=== PATIENT | male | born 1965 | race Caucasian/White ===

== ENCOUNTER 2021-03-11 19:37 | Emergency (ER) | payer OTHER, SELFPAY ==
[2021-03-11 20:19] VITALS: BP 165/82; PULSE 79; RESP 16; TEMP 36.7; O2SAT 94; BMI 59.3
--- NOTE | 2021-03-11 20:29 | ED_ITS ---
HPI - Wound/Laceration General: Chief Complaint: Wound/Laceration Stated Complaint: Middle Finger Left Hand needs Stiches Time Seen by Provider: 03/11/21 19:59 Course Vital Signs: Vital signs: Vital Signs Temperature 98.1 F 03/11/21 20:19 Pulse Rate 79 03/11/21 20:19 Respiratory Rate 16 03/11/21 20:19 Blood Pressure 165/82 03/11/21 20:19 Pulse Oximetry 94 03/11/21 20:19 Coding Level of Care Code ED Tax Map Technician for Temi Hunter
--- NOTE | 2021-03-11 20:31 | W.ED.WOUNDLC ---
HPI - Wound/Laceration General: Chief Complaint: Wound/Laceration Stated Complaint: Middle Finger Left Hand needs Stiches Time Seen by Provider: 03/11/21 19:59 Source: patient Mode of arrival: ambulatory Limitations: no limitations History of Present Illness: HPI narrative: 56-year-old male states the laceration to the tip of his middle finger on the left hand. He does have a laceration to the very distal portion of his finger does not involve the DIP joint superficial nature. He rates his pain a 4-10 is no decrease in movement. Up-to-date on tetanus Associated symptoms: Denies chills, fever(s), nausea or vomiting Review of Systems Const: Denies: fever(s), chills, body aches or change in appetite Eyes: Denies: blurry vision or eye discomfort ENMT: Denies: throat pain or dental pain Card: Denies: chest pain Resp: Denies: dyspnea GI: Denies: abdominal pain, nausea, vomiting or diarrhea : Denies: dysuria Musc: Denies: neck pain or back pain Skin/Breast: Denies: rash Neuro: Denies: headache(s) Psych: Denies: depression Giuseppe/Lymph: Denies: easy bruising All/Imm: Denies: urticaria Physical Exam Const: COMMON NORMALS: no acute distress, patient oriented x3 and healthy appearing HENMT: COMMON NORMALS: normocephalic and atraumatic HEAD & SCALP: normocephalic and atraumatic Eye: COMMON NORMALS: Equal, round and reactive pupils present and EOMs intact bilaterally PUPIL: Yes Equal, round and reactive pupils present Neck/C-Spine: COMMON NORMALS: full ROM and supple Chest: COMMONS NORMALS: normal inspection of the chest and normal palpation of entire chest wall Resp: COMMON NORMALS: normal respiratory effort, No retractions, No use of accessory muscles and clear to auscultation bilaterally AUSCULTATION: clear to auscultation bilaterally Cardio: COMMON NORMALS: regular rate, regular rhythm and No murmurs present (Cardio) RATE: regular rate RHYTHM: regular rhythm GI: COMMON NORMALS: Normal to inspection, nondistended, normoactive bowel sounds present, Soft to palpation, non-tender and no masses PALPATION: Yes Soft to palpation Extremity: COMMON NORMALS: normal to inspection and full ROM Neuro: COMMON NORMALS: patient oriented x3, moves all extremities and no focal motor deficits Psych: COMMON NORMALS: mental status grossly normal, Normal thought process present and cooperative THOUGHT PROCESS: Normal thought process present Skin: COMMON NORMALS: no rashes or lesions noted NARRATIVE SKIN EXAM: Superficial facial laceration to the tip of the left middle finger 1 cm GENERAL SKIN EXAM: no rashes or lesions noted Procedures Laceration Laceration 1: Site: hand Side (If applicable): left Size (cm): 1 Description: linear Depth: simple, single layer Pre-repair: wound explored and irrigated extensively Skin layer closed with: other (dermabond) Course Vital Signs: Vital signs: Vital Signs Temperature 98.1 F 03/11/21 20:36 Pulse Rate 79 03/11/21 20:36 Respiratory Rate 16 03/11/21 20:36 Blood Pressure 165/82 03/11/21 20:36 Pulse Oximetry 94 03/11/21 20:36 MDM - Wound/Laceration MDM Narrative: Medical decision making narrative: Patient presents with a laceration to his tip of his middle finger laceration was repaired with tissue adhesive he is stable for discharge. Discharge Plan Discharge Patient Disposition: Home Clinical Impression: Laceration Condition: Stable Discharge Orders: Discharge ED (Routine); Ordered 03/11/21 Ordered By: Joy Ayers Discharge Diet: Advance as tolerated Discharge Activity: Resume usual activity Patient Instructions: Skin Adhesive Care (ED) Coding Level of Care Code ED Back Strip Machine Operator for Temi Hunter
[2021-03-11 20:36] VITALS: BP 165/82; PULSE 79; RESP 16; TEMP 36.7; O2SAT 94
== END 2021-03-11 20:53 | disposition home or self-care (01) ==
PROVIDERS: Emergency Provider Emergency Medicine
DX: S61.213A Laceration without foreign body of left middle finger without damage to nail, initial encounter (principal); X58.XXXA Exposure to other specified factors, initial encounter
CPT/HCPCS: 12001; 99282

== ENCOUNTER → 2021-11-28 14:12 | Outpatient (BNVA) | payer OTHER, SELFPAY | PROVIDERS: PCP Family Medicine; Referring Provider Family Medicine; Visit Provider Specialist | DX: M19.012 Primary osteoarthritis, left shoulder (principal); M25.512 Pain in left shoulder | CPT/HCPCS: 73030 ==

== ENCOUNTER 2021-12-28 12:03 | Outpatient (CLI) | payer OTHER, SELFPAY ==
--- NOTE | 2021-12-28 12:30 | MR_ITS ---
WS: [id number] MRI LEFT SHOULDER HISTORY: shoulder injury/pain COMPARISON: Radiograph 11/28/2021 TECHNIQUE: Multiplanar sequences of the shoulder joint are submitted. Moderate AC joint hypertrophy. Osteophytic ridging and soft tissue hypertrophy surrounding the AC juanita nt with mild encroachment upon the supraspinatus. Small amount of marrow edema in the acromion with n arrowing of the AC joint. No significant bursal distention. No os acromion. Biceps tendon is in roque l position with increase fluid in the tendon sheath. Moderate narrowing of the glenohumeral joint with osteophytic ridging around the humeral head. No mus kemar atrophy. No edema. Quality of this examination is suboptimal by body habitus. There is fluid makenzie g the subscapularis tendon but no tear identified. Blunting and abnormal signal involving the labrum and the glenoid. There is soft tissue thickening involving the labrum. Avulsion and tear through the anterior labrum. Additional tear suspected involving the posterior labrum. Abnormal signal through th e superior labrum. No fractures are identified. MR/MR shoulder LT wo con* [id number] IMPRESSION: 1. Quality of this examination is limited by body habitus. 2. 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 3. No rotator cuff tear is identified. 4. Diffuse abnormal labrum. Abnormal signal with tears involving the superior, anterior and posterior labrum. 5. Biceps tenosynovitis.
== END 2021-12-28 12:04 | disposition home or self-care (01) ==
PROVIDERS: PCP Family Medicine; Visit Provider Specialist
DX: M25.512 Pain in left shoulder (principal); M75.22 Bicipital tendinitis, left shoulder; S43.432A Superior glenoid labrum lesion of left shoulder, initial encounter
CPT/HCPCS: 73221

== ENCOUNTER 2024-01-17 21:22 | Observation (INO) | payer OTHER, SELFPAY ==
[2024-01-17 21:29] VITALS: BP 151/80; PULSE 96; RESP 24; TEMP 37.1; O2SAT 92; BMI 61.6
--- NOTE | 2024-01-17 21:41 | ED_ITS ---
Documented by User: EDILMA Vargas 01/17/24 23:40 HPI - Skin/Abscess/Foreign Bdy 2 General: Chief complaint: Skin/Abscess/Foreign Body Stated complaint: Boil on Side Time Seen by Provider: 01/17/24 21:37 History of Present Illness: 59-year-old male patient comes in today for a draining wound to the right upper abdominal wall. Patient was seen at urgent care clinic and had an incision and drainage done on Thursday to a inclusion of cyst to the right upper abdominal wall. Patient states he was able to get some whitish discharge from the wound on Thursday when he noticed that it was slightly red. Today his caregiver removed the packing from the wound and they had a large amount of drainage from it. Patient and caregiver were concerned and then came to the ER. Patient has some significant redness to the surrounding tissue but reports that it has improved. Patient appears nontoxic. Review of Systems 2 General: Reports: 10 or more systems reviewed and unremarkable except in HPI and below Skin/Breast: Reports: changing lesions PFSH ED 2 PFSH: Social History Smoking and tobacco/nicotine status: never used tobacco/nicotine Physical Exam 2 Const: COMMON NORMALS: alert HENMT: COMMON NORMALS: normocephalic HEAD & SCALP: normocephalic Neck/C-Spine: COMMON NORMALS: full ROM Chest: COMMONS NORMALS: normal inspection of the chest Resp: COMMON NORMALS: normal respiratory effort Cardio: COMMON NORMALS: regular rate RATE: regular rate GI: COMMON NORMALS: Soft to palpation PALPATION: Yes Soft to palpation Back/Pelvis: COMMON NORMALS: thoracic and lumbar spine normal to inspection Extremity: COMMON NORMALS: normal to inspection Neuro: SENSORIUM/ORIENTATION: Yes alert Skin: NARRATIVE SKIN EXAM: 12 cm area of redness across the abdomen with a incision that is approximately 1-1/2 cm with draining purulent fluid. Course 2 Vital Signs: Vital signs: Vital Signs Temperature 97.7 F 01/18/24 20:00 Pulse Rate 79 01/18/24 20:00 Respiratory Rate 19 H 01/18/24 20:00 Blood Pressure 135/90 01/18/24 20:00 Pulse Oximetry 91 01/18/24 20:00 Oxygen Delivery Me thod Room Air 01/18/24 20:00 Oxygen Flow Rate 2 01/18/24 11:05 MDM - Skin/Abscess/Foreign Bdy Medicial Decision Making 59-year-old male patient comes in today for complaints of draining wound to the right upper abdominal wall. Patient reported that incision and drainage done on Thursday. Today patient was concerned due to increased amount of drainage. Patient appears nontoxic. Patient reports some increased pain and discomfort. Differential diagnosis includes but not limited to cellulitis and abscess, fistula, bacteremia, sepsis, malingering. CBC noted a white count of 13,000, CMP was unremarkable. CT of the abdomen and pelvis noted significant inflammation of subcutaneous fat left upper quadrant with thickening of epidermis suggestive of cellulitis. Patient also had scattered soft tissue emphysema that could suggest abscess versus fistula or developing necrotizing fasciitis. Patient will be started on vancomycin and Zosyn. I reviewed this with Dr. Arceo, on-call surgeon, who agreed to admit patient for further management and surgical cleanout of the wound. Patient is nontoxic in appearance and wound is draining purulent fluid. Patient will be admitted for surgical management and IV fluids. Reviewed this with patient and was agreed to plan. Discussed with Dr. Gordillo who will write admitting orders. Lab Data 01/17/24 22:58 01/17/24 22:58 Radiology Impressions Abdomen/Pelvis CT 01/17/24 21:47 IMPRESSION: 1. Inflammation in the subcutaneous fat over the left upper quadrant with thickening of the epidermis consistent with cellulitis. 2. Scattered soft tissue emphysema which could represent sequela from abscess drainage/fistula versus developing necrotizing fasciitis. Axial series 8, images 16-23. 3. No obvious abscess at this time. ADDENDUM: 01/17/24 [id number] History: Abscess was opened and drain prior to CT scan. THIS REPORT CONTAINS FINDINGS THAT MAY BE CRITICAL TO PATIENT CARE. The findings were verbally communicated via telephone conference with NIYAH CHAU at 11:22 PM MARIA INES on 01/17/2024. The findings were acknowledged and understood. Laboratory Results WBC 13.07 10^3/uL (3.29-11.43) H 01/17/24 22:58 RBC 5.31 10^6/uL (3.85-5.65) 01/17/24 22:58 Hgb 14.30 g/dL (11.27-16.99) 01/17/24 22:58 Hct 46.7 % (37-53) 01/17/24 22:58 MCV 87.9 fl (82-101) 01/17/24 22:58 MCH 26.9 pg (27-33) L 01/17/24 22:58 MCHC 30.6 g/dL (30-55) 01/17/24 22:58 RDW 16.5 % (12.1-15.1) H 01/17/24 22:58 Plt Count 238 10^3/cmm (157-399) 01/17/24 22:58 MPV 10.0 fL (7.4-10.4) 01/17/24 22:58 Neut % (Auto) 74.7 % 01/17/24 22:58 Lymph % (Auto) 12.2 % 01/17/24 22:58 Ulster % (Auto) 9.3 % 01/17/24 22:58 Eos % (Auto) 2.6 % 01/17/24 22:58 Baso % (Auto) 0.4 % 01/17/24 22:58 Neut # (Auto) 9.76 10^3/uL (1.8-7.7) H 01/17/24 22:58 Lymph # (Auto) 1.6 10^3/uL (0.8-4.8) 01/17/24 22:58 [place]ster # (Auto) 1.2 10^3/uL (0.2-0.9) H 01/17/24 22:58 Eos # (Auto) 0.3 10^3/uL (0.0-0.8) 01/17/24 22:58 Baso # (Auto) 0.1 10^3/uL (0.0-0.1) 01/17/24 22:58 Nucleated RBC % (auto) 0 % 01/17/24 22:58 Nucleated RBCs # 0.0 /100WBC 01/17/24 22:58 Sodium 134 mmol/L (136-145) L 01/17/24 22:58 Potassium 4.1 mmol/L (3.5-5.1) 01/17/24 22:58 Chloride 97 mmol/L (98-107) L 01/17/24 22:58 Carbon Dioxide 29 mmol/L (22-29) 01/17/24 22:58 Anion Gap 12.1 (5-19) 01/17/24 22:58 BUN 12 mg/dL (6-20) 01/17/24 22:58 Creatinine 0.6 mg/dL (0.7-1.2) L 01/17/24 22:58 GFR Calculation 137.9 mL/min (90-130) H 01/17/24 22:58 Glucose 132 mg/dL (65-115) H 01/17/24 22:58 Calculated Osmolality 280 mOsm/kg (285-295) L 01/17/24 22:58 Lactic Acid 1.6 mmol/L (0.5-2.2) 01/17/24 22:58 Calcium 8.8 mg/dL (8.5-10.5) 01/17/24 22:58 Total Bilirubin 0.6 mg/dL (0.15-1.2) 01/17/24 22:58 AST 21 U/L (0-40) 01/17/24 22:58 ALT 34 U/L (0-41) 01/17/24 22:58 Alkaline Phosphatase 117 U/L (40-130) 01/17/24 22:58 C-Reactive Protein 150.2 mg/L (0.0-4.9) H 01/17/24 22:58 Total Protein 6.8 g/dL (6.6-8.7) 01/17/24 22:58 Albumin 2.7 g/dL (3.5-5.2) L 01/17/24 22:58 Globulin 4.1 g/dL (1.3-4.6) 01/17/24 22:58 All radiology interpretation(s) finalized by discharge Discharge Plan Discharge Patient Disposition: Admitted As Inpatient Admit Provider: El Arceo Clinical Impression: Abdominal wall abscess Condition: Stable Coding Level of Care Code ED Skein Drier for Chg Fwd Documented by User: Ubaldo Gordillo DO 01/18/24 23:55 HPI - Skin/Abscess/Foreign Bdy 2 General: Chief complaint: Skin/Abscess/Foreign Body Stated complaint: Boil on Side Time Seen by Provider: 01/17/24 21:37 [facility]: Social History Smoking and tobacco/nicotine status: never used tobacco/nicotine Course 2 Vital Signs: Vital signs: Vital Signs Temperature 97.7 F 01/18/24 20:00 Pulse Rate 79 01/18/24 20:00 Respiratory Rate 19 H 01/18/24 20:00 Blood Pressure 135/90 01/18/24 20:00 Pulse Oximetry 91 01/18/24 20:00 Oxygen Delivery Me thod Room Air 01/18/24 20:00 Oxygen Flow Rate 2 01/18/24 11:05 MDM - Skin/Abscess/Foreign Bdy Medicial Decision Making 59-year-old male patient comes in today for complaints of draining wound to the right upper abdominal wall. Patient reported that incision and drainage done on Thursday. Today patient was concerned due to increased amount of drainage. Patient appears nontoxic. Patient reports some increased pain and discomfort. Differential diagnosis includes but not limited to cellulitis and abscess, fistula, bacteremia, sepsis, malingering. CBC noted a white count of 13,000, CMP was unremarkable. CT of the abdomen and pelvis noted significant inflammation of subcutaneous fat left upper quadrant with thickening of epidermis suggestive of cellulitis. Patient also had scattered soft tissue emphysema that could suggest abscess versus fistula or developing necrotizing fasciitis. Patient will be started on vancomycin and Zosyn. I reviewed this with Dr. Arceo, on-call surgeon, who agreed to admit patient for further management and surgical cleanout of the wound. Patient is nontoxic in appearance and wound is draining purulent fluid. Patient will be admitted for surgical management and IV fluids. Reviewed this with patient and was agreed to plan. Discussed with Dr. Gordillo who will write admitting orders. This patient was initially treated by EDILMA Loera. I agree with this history, evaluation, diagnosis and treatment. Lab Data 01/17/24 22:58 01/17/24 22:58 Radiology Impressions Abdomen/Pelvis CT 01/17/24 21:47 IMPRESSION: 1. Inflammation in the subcutaneous fat over the left upper quadrant with thickening of the epidermis consistent with cellulitis. 2. Scattered soft tissue emphysema which could represent sequela from abscess drainage/fistula versus developing necrotizing fasciitis. Axial series 8, images 16-23. 3. No obvious abscess at this time. ADDENDUM: 01/17/24 [id number] History: Abscess was opened and drain prior to CT scan. THIS REPORT CONTAINS FINDINGS THAT MAY BE CRITICAL TO PATIENT CARE. The findings were verbally communicated via telephone conference with NIYAH CHAU at 11:22 PM CDT on 01/17/2024. The findings were acknowledged and understood. Laboratory Results WBC 13.07 10^3/uL (3.29-11.43) H 01/17/24 22:58 RBC 5.31 10^6/uL (3.85-5.65) 01/17/24 22:58 Hgb 14.30 g/dL (11.27-16.99) 01/17/24 22:58 Hct 46.7 % (37-53) 01/17/24 22:58 MCV 87.9 fl (82-101) 01/17/24 22:58 MCH 26.9 pg (27-33) L 01/17/24 22:58 MCHC 30.6 g/dL (30-55) 01/17/24 22:58 RDW 16.5 % (12.1-15.1) H 01/17/24 22:58 Plt Count 238 10^3/cmm (157-399) 01/17/24 22:58 MPV 10.0 fL (7.4-10.4) 01/17/24 22:58 Neut % (Auto) 74.7 % 01/17/24 22:58 Lymph % (Auto) 12.2 % 01/17/24 22:58 Ulster % (Auto) 9.3 % 01/17/24 22:58 Eos % (Auto) 2.6 % 01/17/24 22:58 Baso % (Auto) 0.4 % 01/17/24 22:58 Neut # (Auto) 9.76 10^3/uL (1.8-7.7) H 01/17/24 22:58 Lymph # (Auto) 1.6 10^3/uL (0.8-4.8) 01/17/24 22:58 Ulster # (Auto) 1.2 10^3/uL (0.2-0.9) H 01/17/24 22:58 Eos # (Auto) 0.3 10^3/uL (0.0-0.8) 01/17/24 22:58 Baso # (Auto) 0.1 10^3/uL (0.0-0.1) 01/17/24 22:58 Nucleated RBC % (auto) 0 % 01/17/24 22:58 Nucleated RBCs # 0.0 /100WBC 01/17/24 22:58 Sodium 134 mmol/L (136-145) L 01/17/24 22:58 Potassium 4.1 mmol/L (3.5-5.1) 01/17/24 22:58 Chloride 97 mmol/L (98-107) L 01/17/24 22:58 Carbon Dioxide 29 mmol/L (22-29) 01/17/24 22:58 Anion Gap 12.1 (5-19) 01/17/24 22:58 BUN 12 mg/dL (6-20) 01/17/24 22:58 Creatinine 0.6 mg/dL (0.7-1.2) L 01/17/24 22:58 GFR Calculation 137.9 mL/min (90-130) H 01/17/24 22:58 Glucose 132 mg/dL (65-115) H 01/17/24 22:58 Calculated Osmolality 280 mOsm/kg (285-295) L 01/17/24 22:58 Lactic Acid 1.6 mmol/L (0.5-2.2) 01/17/24 22:58 Calcium 8.8 mg/dL (8.5-10.5) 01/17/24 22:58 Total Bilirubin 0.6 mg/dL (0.15-1.2) 01/17/24 22:58 AST 21 U/L (0-40) 01/17/24 22:58 ALT 34 U/L (0-41) 01/17/24 22:58 Alkaline Phosphatase 117 U/L (40-130) 01/17/24 22:58 C-Reactive Protein 150.2 mg/L (0.0-4.9) H 01/17/24 22:58 Total Protein 6.8 g/dL (6.6-8.7) 01/17/24 22:58 Albumin 2.7 g/dL (3.5-5.2) L 01/17/24 22:58 Globulin 4.1 g/dL (1.3-4.6) 01/17/24 22:58 Discharge Plan Discharge Patient Disposition: Admitted As Inpatient Admit Provider: El Arceo Clinical Impression: Abdominal wall abscess Condition: Stable Coding Level of Care Code ED Skein Drier for Temi Hunter
--- NOTE | 2024-01-17 21:47 | CTR_ITS ---
PROCEDURE INFORMATION: Exam: CT Abdomen And Pelvis With Contrast Exam date and time: 01/17/2024 10:32 PM Age: 59 years old Clinical indication: Other: Skin abscess; Patient HX: Patient has anterior abd wall abscess with drainage to ruq. ; Additional info: Abd skin abscess TECHNIQUE: Imaging protocol: Computed tomography of the abdomen and pelvis with contrast. Radiation optimization: All CT scans at this facility use at least one of these dose optimization techniques: automated exposure control; mA and/or kV adjustment per patient size (includes targeted exams where dose is matched to clinical indication); or iterative reconstruction. Contrast material: OMNI 350; Contrast volume: 125 ml; Contrast route: INTRAVENOUS (IV); COMPARISON: CR XR chest 1V [id number] 02/27/2018 5:08 PM RADIATION DOSE METRICS: Total DLP (mGy-cm): 1523.68 FINDINGS: Liver: Normal. No mass. Gallbladder and biliary ducts: Normal. No calcified stones. No ductal dilation. Pancreas: Normal. No ductal dilation. Spleen: Normal. No splenomegaly. Adrenal glands: Normal. No mass. Kidneys and ureters: Normal. No hydronephrosis. Stomach and bowel: Unremarkable. No obstruction. No mucosal thickening. Appendix: No evidence of appendicitis. Intraperitoneal space: Unremarkable. No free air. No significant fluid collection. Vasculature: Unremarkable. No abdominal aortic aneurysm. Lymph nodes: Unremarkable. No enlarged lymph nodes. Urinary bladder: Unremarkable as visualized. Reproductive: Unremarkable as visualized. Bones/joints: Unremarkable. No acute fracture. Soft tissues: Inflammation in the subcutaneous fat over the left upper quadrant with thickening of the epidermis consistent with cellulitis. Scattered soft tissue emphysema which could represent sequela from abscess drainage/fistula versus developing necrotizing fasciitis. Axial series 8, images 16-23. Other findings: Examination is limited secondary to body habitus. No obvious abscess at this time. CT/CT abdomen pelvis w con* [id number] IMPRESSION: 1. Inflammation in the subcutaneous fat over the left upper quadrant with thickening of the epidermis consistent with cellulitis. 2. Scattered soft tissue emphysema which could represent sequela from abscess drainage/fistula versus developing necrotizing fasciitis. Axial series 8, images 16-23. 3. No obvious abscess at this time.
[2024-01-17] MEDS: iohexol 350 mg/mL 500 mL Btl (per mL) IV (22:29)
[2024-01-17] MEDS: piperacillin-tazobactam 4.5 GM in sodium chloride 0.9% (plus) 50 ML IV (22:58)
[2024-01-17] MEDS: vancomycin 1,000 MG in sodium chloride 0.9% 250 ML 250 MG IV (23:00)
[2024-01-17 23:12] LABS: Basophils # 0.1 10^3/uL (0.0-0.1); Basophils % 0.4 %; Eosinophils # 0.3 10^3/uL (0.0-0.8); Eosinophils % 2.6 %; Hematocrit 46.7 % (37-53); Lymphocytes # 1.6 10^3/uL (0.8-4.8); Lymphocytes % 12.2 %; Mean Corpuscular HGB Conc 30.6 g/dL (30-55); Mean Corpuscular Hemoglobin 26.9 pg (27-33); Mean Corpuscular Volume 87.9 fl (82-101); Monocytes # 1.2 10^3/uL (0.2-0.9); Monocytes % 9.3 %; Neutrophils # 9.76 10^3/uL (1.8-7.7); Neutrophils % 74.7 %; Nucleated Red Blood Cells % 0 %; Platelet Count 238 10^3/cmm (157-399); Red Blood Count 5.31 10^6/uL (3.85-5.65); Red Cell Distribution Width 16.5 % (12.1-15.1); White Blood Count 13.07 10^3/uL (3.29-11.43)
[2024-01-17 23:13] VITALS: PULSE 102; RESP 22; O2SAT 92
[2024-01-17 23:33] LABS: Alanine Aminotransferase 34 U/L (0-41); Albumin Level 2.7 g/dL (3.5-5.2); Alkaline Phosphatase 117 U/L (40-130); Anion Gap 12.1 (5-19); Aspartate Amino Transferase 21 U/L (0-40); Blood Urea Nitrogen 12 mg/dL (6-20); C Reactive Protein 150.2 mg/L (0.0-4.9); Calcium 8.8 mg/dL (8.5-10.5); Carbon Dioxide 29 mmol/L (22-29); Chloride 97 mmol/L (98-107); Globulin 4.1 g/dL (1.3-4.6); Glomerular Filtration Rate 137.9 mL/min (90-130); Glucose 132 mg/dL (65-115); Lactic Sepsis W/Reflex 1.6 mmol/L (0.5-2.2); Osmolality Calculated 280 mOsm/kg (285-295); Potassium 4.1 mmol/L (3.5-5.1); Sodium 134 mmol/L (136-145); Total Bilirubin 0.6 mg/dL (0.15-1.2); Total Protein 6.8 g/dL (6.6-8.7)
[2024-01-17 23:40] LABS: Creatinine Clr Calc Pharmacy 248.7585
[2024-01-17 23:42] VITALS: RESP 18
[2024-01-17] MEDS: HYDROmorphone 1 mg/mL INJ 1 mL 0.5 MG IVP (23:42)
[2024-01-18] VITALS (20 sets, daily range): BP systolic 108–170; BP diastolic 65–90; PULSE 73–92; RESP 18–20; TEMP 36.2–37.1; O2SAT 9–98; BMI 61.6
[2024-01-18] MEDS: piperacillin-tazobactam 4.5 GM in sodium chloride 0.9% (plus) 50 ML IV ×4 (02:20→20:12)
[2024-01-18] MEDS: sodium chloride 0.9% 1,000 ML 100 ML IV ×2 (02:24→12:19)
[2024-01-18] MEDS: vancomycin 1,750 MG/350 ML PIGGYBACK 233.33 MG IV ×2 (03:07→12:18)
--- NOTE | 2024-01-18 07:06 | P.HP_ITS ---
Providers/Chief Complaint 2 Admitting Physician: El Arceo MD Primary Care Provider: Emmanuel Wills MD Chief Complaint: Boil on Side, Busted Stiches History of Present Illness Herrera Forbes is a 59 year old male Who presents to our hospital complaining of swelling and redness of the anterior abdominal wall. He has noticed a boil about 5 to 7 days ago, it self drained and then he presented to the emergency room for I&D and has been packing it, yesterday while removing the packing the large amount of purulent material came out. He denies any other significant systemic symptoms. Review of Systems 2 General: Reports: 10 or more systems reviewed and unremarkable except in HPI and below Medications/Allergies Home Medications Medication Instructions Recorded Confirmed Last Taken Type cyclobenzaprine 10 mg tablet 10 mg PO PRN 11/28/21 01/18/24 01/12/24 History losartan 50 mg tablet 50 mg PO DAILY 11/28/21 01/18/24 01/17/24 History tramadol 50 mg tablet 50 mg PO TID PRN Pain 11/28/21 01/18/24 01/17/24 History amoxicillin 875 mg-potassium 875 tab PO DIRECTED 01/18/24 01/18/24 01/17/24 History clavulanate 125 mg tablet carvedilol 3.125 mg tablet 3.125 mg PO BID 01/18/24 01/18/24 01/17/24 History furosemide 40 mg tablet 40 mg PO DAILY 01/18/24 01/18/24 01/17/24 History ibuprofen 800 mg tablet 800 mg PO PRN pain 01/18/24 01/18/24 01/17/24 History potassium chloride 20 mEq 20 meq PO DAILY 01/18/24 01/18/24 01/17/24 History tablet,extended release semaglutide 1 mg/dose (4 mg/3 mL) 1 mg SUBCUT DIRECTED 01/18/24 01/18/24 01/17/24 History subcutaneous pen injector (Ozempic) testosterone cypionate 200 mg/mL 0.5 mg IM DIRECTED 01/18/24 01/18/24 01/17/24 History intramuscular oil Allergies Allergy/AdvReac Type Severity Reaction Status Date / Time No Known Allergies Allergy Verified 01/17/24 21:35 PFSH Acute 2 PFSH: Social History Smoking and tobacco/nicotine status: never used tobacco/nicotine Vitals/I&O/Wt Last Vital Signs Temp 97.6 F 01/18/24 04:00 Pulse 83 01/18/24 04:00 Resp 18 01/18/24 04:00 BP 131/80 01/18/24 04:00 Pulse Ox 94 01/18/24 04:00 O2 Del Method Room Air 01/18/24 04:00 01/17/24 01/18/24 01/18/24 22:59 06:59 14:59 Intake Total 700 / 700 Balance 700 / 700 Weight last 48 hrs Weight 473 lb 5 oz Weight 467 lb Weight 467 lb Physical Exam 2 Narrative: General : Patient is well developed , no acute distress, oriented x3 Head : Normal cephalic, a-traumatic. Nose : Mucous membranes are without erythema. Lungs : Equal chest rise bilaterally, no use of accessory muscles, trachea is midline. CV : Rate and rhythm are normal. Abdomen : There is erythema on the left upper quadrant there is a small area of drainage measuring about 1 cm, no significant purulence noted at the time cellulitis extends for about a diameter of 7 cm around the wound Extremities : No edema. Upper extremities are normal bilaterally. Back : non-tender to palpation, no CVA tenderness. Data 01/17/24 22:58 01/17/24 22:58 Micro: Microbiology 01/17/24 22:58 Blood Culture - Preliminary Blood SPECIMEN COLLECTED 01/17/24 22:16 Blood Culture - Preliminary Blood SPECIMEN COLLECTED A&P Assessment and plan (1) Morbid obesity with BMI of 60.0-69.9, adult: (2) Abdominal wall abscess: Plan 59-year-old male with morbid obesity who presents with abdominal wall abscess and possible abdominal wall cellulitis and soft tissue infection, incision drainage debridement and washout is indicated in this case. After discussion of all risk and benefits including the risk of bleeding, infection, damage to surrounding structures, poor wound healing, need for extensive debridement on the abdominal wall resulting on the defect that we will need skin grafting, recurrent infection, chronic pain. The patient shows understanding and wishes to proceed with the debridement. We will go to the OR this morning, patient will remain n.p.o. and on IV antibiotics in the interim. Attestations 2 Medical Necessity Statement*: Patient will require about 24 to 48 hours of hospital stay for IV antibiotics. Coding Level of Care Code Acute Code for Chg Fwd Diagnoses Morbid obesity with BMI of 60.0-69.9, adult E66.01; Z68.44 Abdominal wall abscess L02.211
--- NOTE | 2024-01-18 07:45 | ANES.PREANE2 ---
Pre-Anesthetic Assessment Height/Weight: Height 1.85 m Weight 214.691 kg Temp Pulse Resp BP Pulse Ox O2 Del Method 97.2 F L 78 20 H 160/79 9 L Room Air 01/18/24 07:22 01/18/24 07:22 01/18/24 07:22 01/18/24 07:22 01/18/24 07:22 01/18/24 07:22 Preop Diagnosis: abdominal wall abscess Operation Date: 01/18/24 08:15 Proposed Procedures p Debridement and washout of abdominal wall(Not Applicable) - El Arceo MD Familial anesthetic complications: None Was Beta Radha taken within 24 hours: Yes Was Clonidine taken within 24 hours: N/A Last intake: > 8 hrs, but took ozempic yesterday Social No alcohol and No tobacco Exam alert, oriented x 3, clear to auscultation bilaterally and regular rate & rhythm Airway Mallampati: Class IV Dentition: full Comments: Comments: full ybarra, large neck circumference Pulmonary Sleep Apnea (undiagnosed, but states high likelihood) CV/HEM Congestive Heart Failure (lasix) and Hypertension States he sees carpet repairer at [place] and they told [h]im his heart was strong, he does have a mildly leaky valve Metabolic Diabetes Mellitus (Pre-DM) and Morbid Obesity Anesthetic Plan ASA status: 4 Anesthesia: General Risk of > 500 ml blood loss (7ml/kg in children): No Medications/Allergies Home Medications Medication Instructions Recorded Confirmed Last Taken Type cyclobenzaprine 10 mg tablet 10 mg PO PRN 11/28/21 01/18/24 01/12/24 History losartan 50 mg tablet 50 mg PO DAILY 11/28/21 01/18/24 01/17/24 History tramadol 50 mg tablet 50 mg PO TID PRN Pain 11/28/21 01/18/24 01/17/24 History amoxicillin 875 mg-potassium 875 tab PO DIRECTED 01/18/24 01/18/24 01/17/24 History clavulanate 125 mg tablet carvedilol 3.125 mg tablet 3.125 mg PO BID 01/18/24 01/18/24 01/17/24 History furosemide 40 mg tablet 40 mg PO DAILY 01/18/24 01/18/24 01/17/24 History ibuprofen 800 mg tablet 800 mg PO PRN pain 01/18/24 01/18/24 01/17/24 History potassium chloride 20 mEq 20 meq PO DAILY 01/18/24 01/18/24 01/17/24 History tablet,extended release semaglutide 1 mg/dose (4 mg/3 mL) 1 mg SUBCUT DIRECTED 01/18/24 01/18/24 01/17/24 History subcutaneous pen injector (Ozempic) testosterone cypionate 200 mg/mL 0.5 mg IM DIRECTED 01/18/24 01/18/24 01/17/24 History intramuscular oil Allergies Allergy/AdvReac Type Severity Reaction Status Date / Time No Known Allergies Allergy Verified 01/17/24 21:35 Current Medications Generic Name Dose Route Start Last Admin Trade Name Freq PRN Reason Stop Dose Admin Sodium Chloride 1,000 mls @ 100 mls/hr 01/18/24 01:17 01/18/24 02:24 Sodium Chloride 0.9% IV 100 mls/hr .Q10H YULISSA Administration Piperacillin Sod/Tazobactam 50 mls @ 100 mls/hr 01/18/24 01:17 01/18/24 03:08 Sod 4.5 gm/ Sodium Chloride IV Infused Q6H YULISSA Infusion Protocol Vancomycin/PEG/NADA/Lysine/Water 1,750 mg in 350 mls @ 233.333 mls/hr 01/18/24 01:17 01/18/24 04:39 Vancocin IV Infused Q12H YULISSA Infusion Protocol [facility] Anesthesia Social History Smoking and tobacco/nicotine status: never used tobacco/nicotine Data Anesthesia 01/17/24 22:58 01/17/24 22:58 Short CBC 01/17/24 Range/Units 22:58 WBC 13.07 H (3.29-11.43) 10^3/uL Hgb 14.30 (11.27-16.99) g/dL Hct 46.7 (37-53) % MCV 87.9 (82-101) fl Plt Count 238 (157-399) 10^3/cmm Neut % (Auto) 74.7 % Neut # (Auto) 9.76 H (1.8-7.7) 10^3/uL BMP 01/17/24 22:58 Sodium 134 L Potassium 4.1 Chloride 97 L Carbon Dioxide 29 BUN 12 Creatinine 0.6 L Glucose 132 H Calcium 8.8 Liver Function 01/17/24 Range/Units 22:58 Total Bilirubin 0.6 (0.15-1.2) mg/dL AST 21 (0-40) U/L ALT 34 (0-41) U/L Alkaline Phosphatase 117 (40-130) U/L Albumin 2.7 L (3.5-5.2) g/dL Coags 01/17/24 22:58 C-Reactive Protein 150.2 H Microbiology 01/17/24 22:58 Blood Culture - Preliminary Blood SPECIMEN COLLECTED 01/17/24 22:16 Blood Culture - Preliminary Blood SPECIMEN COLLECTED Cardiac Studies: No Data to Display
[2024-01-18 07:52] LABS: Glucose Point of Care 128 mg/dL (70-110)
[2024-01-18] MEDS: sodium chloride 0.9% 1,000 ML 30 ML IV (08:00)
--- NOTE | 2024-01-18 09:26 | P.OP_ITS ---
Operative Report Date of procedure: January 18, 2024 Pre-op diagnosis: Abdominal wall abscess Post-op diagnosis: Same Post-op findings: There is a large abscess of the anterior abdominal wall extending in a cavity measuring about 12 x 5 x 5 cm. No significant necrosis of the surrounding tissues. Procedure done: Incisional drain of abdominal wall abscess, debridement of abdominal wall and washout. Pathology: Multiple cultures Surgeon: El Arceo MD [employer]inery Operator [employer]: [facility] Estimated blood loss: 5 Brief History: This is a 59-year-old male who presents to the hospital with an abdominal wall abscess who has been spontaneously draining purulent fluid. After discussion of all risk and benefits as documented in my H&P we decided to proceed with debridement and washout of abdominal wall. Procedure: Patient was brought into the OR, he was placed in a supine position, general anesthesia was given. The abdomen was prepped and draped in the usual sterile fashion. Timeout was conducted. There was a 1 cm opening in the skin from the previous I&D, I extended this opening to a total length of 7 cm, as soon as I opened the skin extensive amount of drainage of purulent material was noted, multiple cultures were taken and the material was then evacuated. After evacuating all the purulent material from the cavity Jeanne proceeded with blunt debridement of the abdominal wall using a lap pad and my hand, the soft tissue was robbed extensively and all loculations were broken. No additional pockets of pus of fluid were noted the final measurement of the cavity was 12 x 5 x 5 cm, the wound was irrigated with Pulsavac using 1.5 L of saline, hemostasis was then achieved with electrocautery and the wound was packed with Betadine soaked Kerlix. A sterile dressing was applied at the end of the procedure all counts were correct, the patient tolerated well the procedure and was transferred to the PACU in stable condition.
--- NOTE | 2024-01-18 10:05 | ANE.PACU2 ---
Inpatient post-anesthesia follow up: Airway intact: Yes Vital signs: Temperature 97.4 F Pulse Rate 86 Respiratory Rate 20 Blood Pressure 170/81 Pulse Oximetry 90 Oxygen Delivery Me thod Nasal Cannula Oxygen Flow Rate 2 Fraction of Inspir ed Oxygen Hydration adequate: Yes Nausea and vomiting: No Pain level: 1 Mental status: Baseline
--- NOTE | 2024-01-18 12:36 | PC.NURSE ---
Fluids paused d/t CHF. Dr. Constantine Mccracken.
[2024-01-18] MEDS: carvedilol 3.125 mg Tablet PO (18:08)
[2024-01-19] VITALS (10 sets, daily range): BP systolic 111–149; BP diastolic 65–106; PULSE 66–79; RESP 16–20; TEMP 36.4–36.7; O2SAT 90–97
[2024-01-19] MEDS: piperacillin-tazobactam 4.5 GM in sodium chloride 0.9% (plus) 50 ML IV ×4 (01:26→21:22)
[2024-01-19] MEDS: vancomycin 1,750 MG/350 ML PIGGYBACK 233.33 MG IV ×2 (01:52→14:36)
[2024-01-19] MEDS: morphine 4 mg/mL SDV 1 mL IVP ×3 (04:33→21:23)
[2024-01-19 06:44] LABS: Basophils % 0.3 %; Eosinophils # 0.1 10^3/uL (0.0-0.8); Hematocrit 44.6 % (37-53); Lymphocytes # 1.5 10^3/uL (0.8-4.8); Lymphocytes % 12.7 %; Mean Corpuscular Hemoglobin 26.9 pg (27-33); Mean Corpuscular Volume 89.6 fl (82-101); Mean Platelet Volume 10.2 fL (7.4-10.4); Monocytes # 0.8 10^3/uL (0.2-0.9); Monocytes % 7.3 %; Neutrophils # 8.94 10^3/uL (1.8-7.7); Neutrophils % 78.1 %; Nucleated Red Blood Cells % 0 %; Platelet Count 219 10^3/cmm (157-399); Red Blood Count 4.98 10^6/uL (3.85-5.65); Red Cell Distribution Width 16.2 % (12.1-15.1); White Blood Count 11.46 10^3/uL (3.29-11.43)
[2024-01-19 07:08] LABS: Estmated Average Glucose 143; Hemoglobin A1C 6.6 % (4.0-6.0)
[2024-01-19] MEDS: carvedilol 3.125 mg Tablet PO ×2 (09:07→17:17)
[2024-01-19] MEDS: losartan 50 mg Tablet PO (09:07)
[2024-01-19] MEDS: FUROsemide 40 mg Tablet PO (09:07)
--- NOTE | 2024-01-19 09:28 | PC.CHAP ---
Pastoral Care Encounter/Spiritual Assessment Type of Contact [] Declined paper inspector visit [] Patient/Family/Request visit [] Outpatient visit [] Follow-up visit [] Physician referral [] Code/Alert [] Routine visit [] Staff referral [] Actively dying [] Patient sleeping [] Family support [] [] Out of room [] Palliative care [] [] Receiving care in room [] Pre-surgical visit [] Trauma [] Long length of stay [] ICU visit [x] Other:Contact precautions. No visit Relational/Emotional Strength [] Patient feels connected with others/family/visitors/staff [] Distress [] Loneliness/isolation [] Abandonment Spirituality of Patient [] Person of Sara [] Attends Jew of their Sara [] Believes in Prayer [] Reads Bible or Lutheran materials [] There are Spiritual issues to be addressed Laboratory Secretary Interventions [] Prayer [] Active listening [] Non-anxious presence [] Spiritual/emotional support [] Crisis/trauma care [] Spiritual counseling [] Bereavement support [] Provided bereavement packet [] Provided Bible/devotional materials [] Provided toy/stuffed animal, coloring book to patient or family member [] Provided Communion [] Anointing/[place] [] Salvation [] Completed spiritual assessment [] Other: Impact on Illness or Injury [] Angry [] Fearful [] Anxious [] Often cries [] Exhaustion [] Unable to work [] Unable to attend hoahaoism [] Unable to walk/stand [] Unable to read [] Unable to drive [] Unable to eat/drink [] Unable to sleep [] Unable to be with family [] Patient intubated [] Other: Summary Time spent with patient
[2024-01-19 13:29] LABS: Vancomycin Trough 10.6 ug/mL (10-15)
--- NOTE | 2024-01-19 13:41 | PC.NURSE ---
Lab has not drawn Vanc trough. Called to have this drawn.
--- NOTE | 2024-01-19 17:13 | P.PN_ITS ---
Subjective 2 Subjective: Operative day 1 status post I&D of abdominal wall abscess. Patient doing well, minimal tenderness in the area of the abscess, no significant drainage. Otherwise feeling well. Vitals/I&O/Wt Last Vital Signs Temp 98.0 F 01/19/24 16:25 Pulse 72 01/19/24 16:25 Resp 20 H 01/19/24 16:25 BP 124/71 01/19/24 16:25 Pulse Ox 93 01/19/24 16:25 O2 Del Method Room Air 01/19/24 16:25 O2 Flow Rate 2 01/18/24 11:05 01/19/24 01/19/24 01/19/24 06:59 14:59 22:59 Intake Total 400 / 2433.334 530 / 530 760 / 1290 Balance 400 / 2428.334 530 / 530 760 / 1290 Weight last 48 hrs Weight 473 lb 7 oz Weight 473 lb 5 oz Weight 467 lb Weight 467 lb Physical Exam 2 GI: OTHER: Abdominal examination is benign in the left upper quadrant there is a surgical incision that is packed with Kerlix, the packing was removed there is no evidence of further purulence wounds appear to be healing well. Data 01/19/24 06:33 01/17/24 22:58 Micro: Microbiology 01/18/24 09:11 Gram Stain - Final Abdomen Tissue Culture - Preliminary Abscess Culture - Preliminary 01/17/24 22:58 Blood Culture - Preliminary Blood NEGATIVE TO DATE 01/17/24 22:16 Blood Culture - Preliminary Blood NEGATIVE TO DATE A&P Assessment and plan (1) Abdominal wall abscess: (2) Morbid obesity with BMI of 60.0-69.9, adult: (3) Diabetes mellitus: Plan Patient showing good progression after I&D of abdominal wall abscess. He is cultures are not back and he is white count is still elevated to 11 so we have decided to keep him 1 more day in the hospital to ensure adequate treatment, upon discharge he will follow-up daily in our hospital for wound care by nursing staff and I will see him in 2 weeks. In addition I will obtain a hemoglobin A1c level and it was 6.6, this confirms a diagnosis of diabetes, the patient had told me that he was prediabetic but with this newly diagnosed diabetes I have decided to consult the hospitalist team to evaluate and see if he will need additional therapy. Attestations 2 Medical Necessity Statement*: For discharge danteorrow Coding Level of Care Code Acute Code for Chg Fwd Diagnoses Abdominal wall abscess L02.211 Morbid obesity with BMI of 60.0-69.9, adult E66.01; Z68.44 Diabetes mellitus E11.9
[2024-01-20] VITALS: BP 133/76; PULSE 72; RESP 19; TEMP 36.4; O2SAT 97
[2024-01-20] MEDS: vancomycin 1,750 MG/350 ML PIGGYBACK 233.33 MG IV (02:21)
[2024-01-20 04:00] VITALS: BP 138/72; PULSE 71; RESP 18; TEMP 36.5; O2SAT 90
[2024-01-20] MEDS: piperacillin-tazobactam 4.5 GM in sodium chloride 0.9% (plus) 50 ML IV (04:05)
[2024-01-20 06:27] LABS: Basophils # 0.1 10^3/uL (0.0-0.1); Basophils % 0.6 %; Eosinophils # 0.5 10^3/uL (0.0-0.8); Hematocrit 43.6 % (37-53); Mean Corpuscular HGB Conc 30.3 g/dL (30-55); Mean Corpuscular Hemoglobin 27.3 pg (27-33); Mean Corpuscular Volume 90.3 fl (82-101); Mean Platelet Volume 10.6 fL (7.4-10.4); Monocytes # 1.1 10^3/uL (0.2-0.9); Monocytes % 10.7 %; Neutrophils # 6.21 10^3/uL (1.8-7.7); Neutrophils % 62.5 %; Nucleated Red Blood Cells % 0 %; Platelet Count 231 10^3/cmm (157-399); Red Blood Count 4.83 10^6/uL (3.85-5.65); Red Cell Distribution Width 16.5 % (12.1-15.1); White Blood Count 9.94 10^3/uL (3.29-11.43)
--- NOTE | 2024-01-20 08:02 | PM.DCS ---
Discharge Providers Date of Admission: 01/18/24 00:00 Date of Discharge: January 20, 2024 Attending Provider at Admission: El Arceo MD Attending Provider at Discharge: El rAceo MD Primary Care Provider: Emmanuel Wills MD Diagnoses at Discharge Discharge Diagnosis (1) Abdominal wall abscess: Status: Acute (2) Morbid obesity with BMI of 60.0-69.9, adult: Status: Acute (3) Diabetes mellitus: Status: Acute Reason for Visit Reason for Visit: Boil on Side, Busted [facility] Hospital Course Hospital Course 59-year-old male with history of morbid obesity with a BMI of 56.4 who presents to the hospital with an abdominal wall abscess in the left upper quadrant. Patient was taken to the OR for debridement in the following 24 to 48 hours progression has been excellent wound appears to be clean no evidence of significant cellulitis around the wound. Patient will be discharged and transition to p.o. antibiotics. He will come to the hospital on a once daily basis for packing change and he will follow-up with me in 2 weeks to ensure adequate healing. Of note during hospital stay patient was diagnosed of diabetes, he will obtain early follow-up with primary care physician for medication management Physical Exam GI: OTHER: Abdomen is soft nontender nondistended, in the left upper quadrant there is a surgical incision the wound appears to be clean with no evidence of purulence. Discharge Data Studies Completed and Pending Completed Studies During Hospitalization Category Date Time Status CT abdomen pelvis w con* [id number] Stat Cat Scan 01/17/24 21:47 Completed Pending at discharge Category Date Time Status Abscess Culture and Gram Stain Routine Lab 01/18/24 09:11 Results Anaerobic Culture Routine Lab 01/18/24 09:11 Received Anaerobic Culture Routine Lab 01/18/24 09:11 Results Blood Culture Stat Lab 01/17/24 22:58 Results Lipid Panel Routine Lab 01/20/24 05:36 Ordered Tissue Culture and Gram Stain Routine Lab 01/18/24 09:11 Results Radiology Impressions Abdomen/Pelvis CT 01/17/24 21:47 IMPRESSION: 1. Inflammation in the subcutaneous fat over the left upper quadrant with thickening of the epidermis consistent with cellulitis. 2. Scattered soft tissue emphysema which could represent sequela from abscess drainage/fistula versus developing necrotizing fasciitis. Axial series 8, images 16-23. 3. No obvious abscess at this time. ADDENDUM: 01/17/24 3888 History: Abscess was opened and drain prior to CT scan. THIS REPORT CONTAINS FINDINGS THAT MAY BE CRITICAL TO PATIENT CARE. The findings were verbally communicated via telephone conference with NIYAH CHAU at 11:22 PM CDT on 01/17/2024. The findings were acknowledged and understood. Laboratory Results WBC 9.94 10^3/uL (3.29-11.43) 01/20/24 05:36 RBC 4.83 10^6/uL (3.85-5.65) 01/20/24 05:36 Hgb 13.20 g/dL (11.27-16.99) 01/20/24 05:36 Hct 43.6 % (37-53) 01/20/24 05:36 MCV 90.3 fl (82-101) 01/20/24 05:36 MCH 27.3 pg (27-33) 01/20/24 05:36 MCHC 30.3 g/dL (30-55) 01/20/24 05:36 RDW 16.5 % (12.1-15.1) H 01/20/24 05:36 Plt Count 231 10^3/cmm (157-399) 01/20/24 05:36 MPV 10.6 fL (7.4-10.4) H 01/20/24 05:36 Neut % (Auto) 62.5 % 01/20/24 05:36 Lymph % (Auto) 20.0 % 01/20/24 05:36 Kay % (Auto) 10.7 % 01/20/24 05:36 Eos % (Auto) 5.0 % 01/20/24 05:36 Baso % (Auto) 0.6 % 01/20/24 05:36 Neut # (Auto) 6.21 10^3/uL (1.8-7.7) 01/20/24 05:36 Lymph # (Auto) 2.0 10^3/uL (0.8-4.8) 01/20/24 05:36 Kay # (Auto) 1.1 10^3/uL (0.2-0.9) H 01/20/24 05:36 Eos # (Auto) 0.5 10^3/uL (0.0-0.8) 01/20/24 05:36 Baso # (Auto) 0.1 10^3/uL (0.0-0.1) 01/20/24 05:36 Nucleated RBC % (auto) 0 % 01/20/24 05:36 Nucleated RBCs # 0.0 /100WBC 01/20/24 05:36 Sodium 134 mmol/L (136-145) L 01/17/24 22:58 Potassium 4.1 mmol/L (3.5-5.1) 01/17/24 22:58 Chloride 97 mmol/L (98-107) L 01/17/24 22:58 Carbon Dioxide 29 mmol/L (22-29) 01/17/24 22:58 Anion Gap 12.1 (5-19) 01/17/24 22:58 BUN 12 mg/dL (6-20) 01/17/24 22:58 Creatinine 0.6 mg/dL (0.7-1.2) L 01/17/24 22:58 GFR Calculation 137.9 mL/min (90-130) H 01/17/24 22:58 Glucose 132 mg/dL (65-115) H 01/17/24 22:58 POC Glucose 128 mg/dL (70-110) H 01/18/24 07:45 Estimat Average Glucose 143 01/19/24 06:33 Hemoglobin A1c 6.6 % (4.0-6.0) H 01/19/24 06:33 Calculated Osmolality 280 mOsm/kg (285-295) L 01/17/24 22:58 Lactic Acid 1.6 mmol/L (0.5-2.2) 01/17/24 22:58 Calcium 8.8 mg/dL (8.5-10.5) 01/17/24 22:58 Total Bilirubin 0.6 mg/dL (0.15-1.2) 01/17/24 22:58 AST 21 U/L (0-40) 01/17/24 22:58 ALT 34 U/L (0-41) 01/17/24 22:58 Alkaline Phosphatase 117 U/L (40-130) 01/17/24 22:58 C-Reactive Protein 150.2 mg/L (0.0-4.9) H 01/17/24 22:58 Total Protein 6.8 g/dL (6.6-8.7) 01/17/24 22:58 Albumin 2.7 g/dL (3.5-5.2) L 01/17/24 22:58 Globulin 4.1 g/dL (1.3-4.6) 01/17/24 22:58 Vancomycin Trough 10.6 ug/mL (10-15) 01/19/24 12:58 Vitals Last Vital Signs Temp 97.7 F 01/20/24 04:00 Pulse 71 01/20/24 04:00 Resp 18 01/20/24 04:00 BP 138/72 01/20/24 04:00 Pulse Ox 90 01/20/24 04:00 O2 Del Method Nasal Cannula 01/20/24 04:00 O2 Flow Rate 2 01/19/24 20:00 Discharge Plan Discharge Patient Disposition: Home Condition: Stable Prescriptions: New amoxicillin-pot clavulanate 875-125 mg tablet 1 tab PO BID 7 Days Qty: 14 0RF clindamycin HCl 300 mg capsule 300 mg PO Q8H 10 Days Qty: 30 0RF meloxicam 7.5 mg tablet 7.5 mg PO DAILY 5 Days Qty: 5 0RF Continued losartan 50 mg tablet 50 mg PO DAILY tramadol 50 mg tablet 50 mg PO TID PRN (Reason: Pain) cyclobenzaprine 10 mg tablet 10 mg PO PRN furosemide 40 mg tablet 40 mg PO DAILY carvedilol 3.125 mg tablet 3.125 mg PO BID testosterone cypionate 200 mg/mL oil 0.5 mg IM DIRECTED potassium chloride 20 mEq tablet extended release 20 meq PO DAILY Ozempic 1 mg/dose (4 mg/3 mL) pen injector 1 mg SUBCUT DIRECTED Rx Instructions: Weekly Discontinued ibuprofen 800 mg tablet 800 mg PO PRN amoxicillin-pot clavulanate 875-125 mg tablet 875 tab PO DIRECTED Discharge Orders: Discharge Order (Routine); Ordered 01/20/24 Ordered By: El Arceo Other Ambulatory Orders: Miscellaneous Procedure (Order) Timeframe: 2 Weeks Location: None Selected Ordered By: El Arceo Referrals: Emmanuel Wills MD [Primary Care Provider] - (1 week) El Arceo MD [Physician] - (2 weeks) Discharge Diet: Diabetic Discharge Activity: Resume usual activity Patient Instructions: Acute Wound Care (DC), Opioid Safety, Post Anesthesia Care Activity Restrictions/Additional Instructions: You will come to the hospital once a day to receive dressing changes. I will see you in 2 weeks to ensure adequate healing of your wound. If over this time you develop significant swelling excessive purulence drainage from your wound or any symptoms like fever chills please come back to the hospital. Discharge Attestations Time Spent in Discharge Care*: less than 30 min Quality Metrics Clinical Quality Measures [ No reported AMI, CVA or VTE this stay] Coding Level of Care Code Acute Code for Chg Fwd Diagnoses Abdominal wall abscess L02.211 Morbid obesity with BMI of 60.0-69.9, adult E66.01; Z68.44 Diabetes mellitus E11.9
[2024-01-20 08:11] VITALS: BP 120/75; PULSE 74; RESP 18; TEMP 36.6; O2SAT 94
[2024-01-20 08:44] LABS: Chol HDL Ratio 3.67 mg/dL (1.0-5.00); Cholesterol 110 mg/dL (0-200); HDL Cholesterol 30 mg/dL (60-100); LDL Cholesterol Calculated 63 mg/dL (50-129); Triglycerides 87 mg/dL (0-150)
[2024-01-20] MEDS: carvedilol 3.125 mg Tablet PO (09:42)
[2024-01-20] MEDS: metformin 500 mg Tablet PO (09:42)
[2024-01-20] MEDS: FUROsemide 40 mg Tablet PO (09:43)
[2024-01-20] MEDS: losartan 50 mg Tablet PO (09:43)
--- NOTE | 2024-01-20 09:44 | P.CONIM_ITS ---
Providers/Reason For Consult 2 Consulting Physician/Specialty*: Natalya Hagen MD/ hospitalist Reason for Consult*: Diabetes management Requesting Physician: El Arceo MD Attending Physician: El Arceo MD Primary Care Provider: Emmanuel Wills MD History of Present Illness History of Present Illness Herrera Forbes is a 59 year old male who carries a diagnosis of prediabetes, he is currently on weekly Ozempic and Trulicity by his primary care provider Dr. Wills. States that his A1c has usually been between 6.1-6.2. He is currently admitted here for an abdominal wall abscesses status post I&D and anticipating discharge today. Medicine service has been consulted for diabetes management. Hemoglobin A1c tested in the hospital returned at 6.6 which is consistent with a diagnosis of diabetes. Patient's other comorbidities include a recent diagnosis of CHF, diagnosed at [facility] a few weeks ago. 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 He denies any past history of known coronary artery disease. He is currently on AMILCAR inhibitors for this reason. No other known history of hypertension, dyslipidemia or other risk factors. He has had recent counseling regarding lifestyle modification with diabetes mellitus. His BMI is currently at 56, states he has been working towards losing weight but this has not yet happened. Review of Systems 2 General: Reports: 10 or more systems reviewed and unremarkable except in HPI and below Const: Denies: fever(s), chills or body aches Eyes: Denies: change in vision, blurry vision or photophobia ENMT: Reports: hoarseness; Denies: throat pain, enlarged tonsils, odynophagia or nasal congestion Card: Denies: chest pain, palpitations, irregular heart rhythm, edema, swelling of feet/ankles, lightheadedness, pre-syncope, dyspnea on exertion or orthopnea Resp: Denies: dyspnea, productive cough, non-productive cough, wheezing, stridor, pain on inspiration, change in phlegm color, hemoptysis or chest congestion GI: Denies: abdominal pain, nausea, vomiting, hematemesis, coffee ground emesis, dysphagia, heartburn, diarrhea, constipation, GI cramping, change in stool character, hematochezia or melena : Denies: flank pain, dysuria, urinary frequency, urinary urgency, urinary hesitancy or hematuria Musc: Denies: neck pain, back pain, extremity pain, joint swelling, joint warmth or deformity Neuro: Denies: headache(s), numbness in extremities, weakness in extremities, sensory changes, difficulty walking, frequent falls, dizziness, vertigo, behavioral changes, Slurred speech present or seizure-like activity Psych: Denies: anxiety, depression, suicidal ideation or homicidal ideation Endo: Denies: polyuria, polydipsia, tired all the time, cold intolerance or hot flashes Giuseppe/Lymph: Denies: easy bruising or easy bleeding Medications/Allergies Home Medications Medication Instructions Recorded Confirmed Last Taken Type cyclobenzaprine 10 mg tablet 10 mg PO PRN 11/28/21 01/18/24 01/12/24 History losartan 50 mg tablet 50 mg PO DAILY 11/28/21 01/18/24 01/17/24 History tramadol 50 mg tablet 50 mg PO TID PRN Pain 11/28/21 01/18/24 01/17/24 History carvedilol 3.125 mg tablet 3.125 mg PO BID 01/18/24 01/18/24 01/17/24 History furosemide 40 mg tablet 40 mg PO DAILY 01/18/24 01/18/24 01/17/24 History potassium chloride 20 mEq 20 meq PO DAILY 01/18/24 01/18/24 01/17/24 History tablet,extended release semaglutide 1 mg/dose (4 mg/3 mL) 1 mg SUBCUT DIRECTED 01/18/24 01/18/24 01/17/24 History subcutaneous pen injector (Ozempic) testosterone cypionate 200 mg/mL 0.5 mg IM DIRECTED 01/18/24 01/18/24 01/17/24 History intramuscular oil amoxicillin 875 mg-potassium 1 tab PO BID 7 days #14 tabs 01/20/24 Unknown Rx clavulanate 125 mg tablet clindamycin HCl 300 mg capsule 300 mg PO Q8H 10 days #30 caps 01/20/24 Unknown Rx meloxicam 7.5 mg tablet 7.5 mg PO DAILY 5 days #5 tabs 01/20/24 Unknown Rx Allergies Allergy/AdvReac Type Severity Reaction Status Date / Time No Known Allergies Allergy Verified 01/17/24 21:35 Current Medications Generic Name Dose Route Start Last Admin Trade Name Freq PRN Reason Stop Dose Admin Carvedilol 3.125 mg 01/18/24 18:00 01/20/24 09:42 Carvedilol 3.125 Mg Tablet PO 3.125 mg BID YULISSA Administration Furosemide 40 mg 01/19/24 09:00 01/20/24 09:43 Furosemide 40 Mg Tablet PO 40 mg DAILY YULISSA Administration Vancomycin/PEG/NADA/Lysine/Water 1,750 mg in 350 mls @ 233.333 mls/hr 01/18/24 01:17 01/20/24 04:02 Vancocin IV Infused Q12H YULISSA Infusion Protocol Piperacillin Sod/Tazobactam 50 mls @ 100 mls/hr 01/18/24 20:00 01/20/24 09:36 Sod 4.5 gm/ Sodium Chloride IV Not Given Q6H YULISSA Protocol Losartan Potassium 50 mg 01/19/24 09:00 01/20/24 09:43 Losartan 50 Mg Tablet PO 50 mg DAILY YULISSA Administration Metformin HCl 500 mg 01/20/24 08:00 01/20/24 09:42 Metformin 500 Mg Tablet PO 500 mg BIDWM YULISSA Administration Morphine Sulfate 4 mg 01/18/24 01:17 01/19/24 21:23 Morphine 4 Mg/Ml Sdv 1 Ml IVP 4 mg Q4H PRN Administration SEVERE PAIN PFSH Acute 2 PFSH: Medical History Congestive heart failure Diagnosed at [facility] Social History Smoking and tobacco/nicotine status: never used tobacco/nicotine Vitals/I&O/Wt Last Vital Signs Temp 97.8 F 01/20/24 08:11 Pulse 74 01/20/24 08:11 Resp 18 01/20/24 08:11 BP 120/75 01/20/24 08:11 Pulse Ox 94 01/20/24 08:11 O2 Del Method Room Air 01/20/24 08:11 O2 Flow Rate 2 01/19/24 20:00 01/19/24 01/20/24 01/20/24 22:59 06:59 14:59 Intake Total 1290 / 1820 400 / 2220 480 / 480 Balance 1290 / 1820 400 / 2220 480 / 480 Weight last 48 hrs Weight 193.769 kg Weight 214.748 kg Physical Exam 2 Narrative: General: No acute distress, AO x3 HEENT: PERRLA, pupils bilaterally equal and reactive, pallors not present Chest: Normal vesicular breath sounds, no added sounds, equal good air entry bilaterally CVS: S1-S2 regular, no murmurs, no tachycardia, no gallops, no rubs Abdomen: Soft, surgical dressing over left upper quadrant not open for exam Neuro: No focal deficits, no facial deformity, AO x3, power 5/5 in all limbs Data 01/20/24 05:36 01/17/24 22:58 Micro: Microbiology 01/18/24 09:11 Gram Stain - Final Abdomen Anaerobic Culture - Preliminary Tissue Culture - Preliminary Abscess Culture - Preliminary A&P Assessment and plan (1) Diabetes mellitus: Patient reports a past medical diagnosis of prediabetes, HbA1c between 6.1-6.2 previously. On current admission HbA1c noted to be 6.6 consistent with a diagnosis of diabetes mellitus. Patient already takes once a week Ozempic and Trulicity at the direction of his primary care provider Dr. Wills. Would continue these at discharge. Discussed with him the option of starting Jardiance given recent diagnosis of CHF, however patient states he would like to discuss this further with his primary care provider and then make any necessary changes to his diabetes regimen. Metformin 500 twice daily may be used for inpatient use since we do not have Ozempic or Trulicity on formulary , if patient expected not to discharge today. Lipid panel checked today with LDL triglyceride within acceptable limits. HDL low at 30. Recommend lifestyle modification. He is motivated to keep follow-up with Dr. Wills and his gas station service attendant in [place]. Thank you for this consult, please call with any further questions or concerns. Coding Level of Care Code Acute Code for Chg Fwd Low MDM includes number and complexity of problems actively addressed during encounter, amount and/or complexity of data reviewed/ordered and described risk of complication, morbidity or mortality of management as documented Diagnoses Diabetes mellitus E11.9
[2024-01-20 12:11] VITALS: BP 120/75; PULSE 74; RESP 18; TEMP 36.6; O2SAT 94
== END 2024-01-20 11:00 | disposition home or self-care (01) ==
LOC: ER 21:42 → MEDSURG 01-18 02:25
PROVIDERS: Student in an Organized Health Care Education/Training Program; Admitting Provider Surgery; Emergency Provider Nurse Practitioner Family; PCP Family Medicine; Visit Provider Surgery
PROC: (CPT 49020; principal; 2024-01-18 08:05)
DX: L02.211 Cutaneous abscess of abdominal wall (principal); R73.03 Prediabetes; E66.01 Morbid (severe) obesity due to excess calories; Z68.44 Body mass index [BMI] 60.0-69.9, adult; G47.30 Sleep apnea, unspecified; I11.0 Hypertensive heart disease with heart failure; I50.9 Heart failure, unspecified
CPT/HCPCS: 49020; 36415; 36416; 74177; 80053; 80061; 80202; 82962; 83036; 83605; 85025; 86140; 87040; 87070; 87075; 87077; 87176; 87205; 96365; 96367; 96375; 99285; G0378; J0330; J1100; J1170; J2270; J2405; J2543; J2704; J3010; J3370; J3372; J3490; J7030; J7050; Q9967

== ENCOUNTER 2024-02-10 10:03 | Outpatient (RCR) | payer OTHER, SELFPAY ==
[2024-01-21 13:00] VITALS: BP 144/78; PULSE 81; RESP 18; TEMP 36.1; O2SAT 91
--- NOTE | 2024-01-21 13:10 | PC.NURSE ---
Pt to GI lab for dressing change to left upper abdomen. Old dressing and packing removed with small amount serosang drainage noted. Wound bed beefy red in appearance without foul odor or purulence noted. Wound measured 6.0 x 0.5 x 6 cm. Cleaned with NS. Packed wet-dry with saline soaked kerlix. Covered with 4x4 and ABD pad. Secured with foam tape. Pt tolerated well. Pt instructed to return to OPS tomorrow at 10 am for dressing change. Pt verbalized understanding.
[2024-01-22 10:00] VITALS: BP 169/82; PULSE 69; RESP 18; TEMP 36.2; O2SAT 92
--- NOTE | 2024-01-22 10:05 | PC.NURSE ---
Pt to OPS for dressing change to left upper abdomen. Old dressing and packing removed with small amount serosang drainage noted. Wound bed beefy red in appearance without foul odor or purulence noted. Wound irrigated with NS. Packed wet-dry with saline soaked kerlix. Covered with 4x4 and ABD pad. Secured with Medipore tape. Foam tape from yesterday noted to cause redness at different areas. No tape applied where irritation noted. Pt tolerated well. Pt instructed to return to OPS tomorrow at 10 am for dressing change. scallop cutter machine nurse will be changing dressing. Pt verbalized understanding.
[2024-01-23 10:00] VITALS: BP 119/93; PULSE 78; RESP 19; TEMP 36.5; O2SAT 94
[2024-01-24 09:57] VITALS: BP 162/95; PULSE 85; RESP 18; TEMP 36.3
[2024-01-25 10:16] VITALS: BP 157/92; PULSE 18; RESP 79; TEMP 36.1; O2SAT 94
[2024-01-26 10:00] VITALS: BP 134/85; PULSE 84; RESP 18; TEMP 36.2; O2SAT 93
[2024-01-27 10:00] VITALS: BP 131/92; PULSE 87; RESP 18; TEMP 36.3; O2SAT 93
[2024-01-28 10:12] VITALS: BP 150/81; PULSE 81; RESP 18; TEMP 36.1; O2SAT 94
--- NOTE | 2024-01-28 10:15 | PC.NURSE ---
Pt to GI lab for dressing change to left upper abdomen. Wound measures 5.5x0.1x4.0. No foul odor or purulent drainage noted. Pt states pain is considerably less. Wound irrigated with NS. Surrounding skin cleaned with CHG wipes. Wound packed with saline soaked gauze, covered with 4x4, and secured with coverderm. Tolerated well.
[2024-01-29 10:15] VITALS: BP 160/117; PULSE 83; RESP 18; TEMP 36.4; O2SAT 90
[2024-01-30 09:53] VITALS: BP 164/88; PULSE 82; RESP 18; TEMP 36.2; O2SAT 94
[2024-01-31 09:51] VITALS: BP 133/83; PULSE 82; RESP 18; TEMP 36.5; O2SAT 93
[2024-02-01 10:10] VITALS: BP 157/83; PULSE 90; RESP 18; TEMP 36.6; O2SAT 93
--- NOTE | 2024-02-01 10:15 | PC.NURSE ---
Pt to GI lab for dressing change to left upper quadrant. Wound continues to show healing. Now using single 4x4 dampened with saline to pack in wound. Secured with Covaderm. Minimal serous drainage noted on old dressing. Pt tolerated well.
[2024-02-02 10:00] VITALS: BP 157/90; PULSE 77; RESP 18; TEMP 36.3; O2SAT 92
--- NOTE | 2024-02-02 10:20 | PC.NURSE ---
Pt to GI lab for wet to dry dressing change. Tolerated well. Pt to see Dr. Arceo in office tomorrow. Dressing will be changed at Dr. Arceo's office. Pt to return to GI lab on for dressing change. Pt verbalized understanding.
[2024-02-04 10:35] VITALS: BP 153/96; PULSE 89; RESP 18; TEMP 36.4; O2SAT 94
--- NOTE | 2024-02-04 10:41 | PC.NURSE ---
Pt to GI lab for wet to dry dressing to left upper abdomen. Wound measures 4.8 x 0.1 x 3.0. Old dressing removed with minimal drainage noted. Wound irrigated with saline. Packed with half a 4x4 and secured with Covaderm. Pt tolerated well.
[2024-02-05 10:36] VITALS: BP 144/77; PULSE 82; RESP 17; TEMP 36.3; O2SAT 92
[2024-02-06 09:47] VITALS: BP 138/90; PULSE 79; RESP 17; TEMP 36.2; O2SAT 95
[2024-02-07 10:15] VITALS: BP 131/80; PULSE 93; RESP 18; TEMP 36.4; O2SAT 94
[2024-02-08 10:07] VITALS: BP 150/89; PULSE 94; RESP 18; TEMP 36.2; O2SAT 93
[2024-02-09 10:05] VITALS: BP 158/92; PULSE 89; RESP 18; TEMP 36.2; O2SAT 92
[2024-02-10 10:05] VITALS: BP 140/93; PULSE 98; RESP 18; TEMP 36.4; O2SAT 92
--- NOTE | 2024-02-10 10:21 | PC.NURSE ---
Pt to GI lab for final wet to dry dressing change. Wound measured 4.5 x 0.1 x 1.0. Pt educated on how to change dressing at home. Pt demonstrated dressing change correctly. Pt removed dressing and irrigated wound with saline syringe. Wound then packed with saline damp 2x2 gauze and secured with Covaderm. Pt changed dressing in front of mirror and demonstrated proper technique. Pt verbalized understanding of what dressing supplies to use and importance to wash hands before and after procedure. Pt has follow up with Dr. Arceo on 02/17/24. Pt instructed to call Dr. Arceo's office for any questions or concerns.
== END 2024-02-10 23:59 | disposition home or self-care (01) ==
LOC: OPS 10:03
PROVIDERS: PCP Family Medicine; Visit Provider Surgery
DX: L02.211 Cutaneous abscess of abdominal wall (principal)
CPT/HCPCS: 99212